=== PATIENT | male | born 1965 | race Caucasian/White ===

== ENCOUNTER 2016-08-08 06:07 | Emergency (ER) | payer OTHER ==
--- NOTE | 2016-08-08 06:39 | DIAGNOSTIC IMAGING REPORT ---
PROCEDURE: XR HAND 3 OR 4 VIEWS - LEFT INDICATION: TRAUMA/INJURY TECHNIQUE: Three views. COMPARISON: None. FINDINGS: There is a mildly distracted transverse fracture of the tuft of the distal phalanx, left second finger. There are nondisplaced fractures of the cheng of the distal phalanges, left third and fourth fingers. The rest of the osseous structures and joint spaces are normal. IMPRESSION: 1. Mildly distracted fracture of the tuft of the distal phalanx, left second finger. 2. Nondisplaced fractures of the tuft of the distal phalanges, left third and fourth fingers.
--- NOTE | 2016-08-08 07:21 | ED NURSING NOTES ---
Clinical Report - Nurses [facility] [address] [place] [address] 08/08/2016 6:11 Patient: KERRI OKEEFE TRIAGE Triage time 06:14. Chief Complaint: INJURY TO LEFT HAND. --06:21 Delia Paz R.N. 06:14 08/08/16. BP: 161/96. HR: 73. RR: 16 (regular and unlabored). O2 saturation: 97%. Temp: 97.4 F (oral). Montague-Reynolds pain scale: 01/11. --06:21 Delia Paz R.N. Weight: 102 kg stated. Height/Length: 67 inches Per Patient. BMI: 35.3. --06:20 Delia Paz R.N. Medications Losartan Potassium Oral 25 mg, 2x a day. --06:16 Delia Paz R.N. Hydrochlorothiazide Oral 25 mg, daily. --06:16 Delia Paz R.N. AmLODIPine Besylate Oral 10 mg, daily. --06:16 Delia Paz R.N. Amitriptyline HCl Oral 25 mg, daily. --06:16 Delia Paz R.N. Atorvastatin Calcium Oral 40 mg, daily. --06:17 Delia Paz R.N. Atorvastatin Calcium Oral (Tablet 40 mg) 1 tablet, daily. --06:17 Delia Paz R.N. Allergies ELISABETH Inhibitors. --06:15 Delia Paz R.N. History Arrived by private vehicle. Historian: patient. Primary physician (Wil). This occurred today. Mechanism of injury: he sustained a crush injury. SOCIAL HX: Light tobacco smoker (cigarette)- less than 1/2 a pack per day. Occasional alcohol use. History of drug use: marijuana. NUTRITIONAL RISK ASSESSMENT: The nutritional risk assessment revealed no deficiencies. FUNCTIONAL ASSESSMENT: Functional assessment: no impairments noted. --06:21 Delia Paz R.N. PROBLEMS: Hypertension. --06:19 Delia Paz R.N. ADDITIONAL SURGERIES: Back Surgery. --06:19 Delia Paz R.N. PHYSICAL ASSESSMENT EXTREMITIES: Tip of left index finger: partially avulsed nail. SKIN: Skin is warm and dry. --06:21 Delia Paz R.N. NURSING PROGRESS NOTES Two patient identifiers checked. Call light placed in reach. Side rails up x 1. Bed placed in lowest position. Brakes of bed on. --06:21 Delia Paz R.N. Patient ready for evaluation- chart flagged. --06:21 Delia Paz R.N. 06:35 08/08/2016 Ancef (CeFAZolin Sodium) IM 1 gm given. Given in the right ventral gluteus. Allergies verified and confirmed 5 rights. --06:38 Delia Paz R.N. WOUND REPAIR: Wound repair performed by ED physician. Preparation: suture tray set-up. Procedure: wound repaired with sutures (2 suture packets used for wound repair). --07:19 Phylicia Malik, ER Tech1 07:10. Applied dressing consisting of xeroform, following the application of antibiotic ointment (bacitracin). Secured with tube gauze. --07:19 Phylicia Malik, ER Tech1 07:44 08/08/2016 TDAP IM 0.5 mL given. (Lot#: [id number], expiration date: 05/01/2018, Warper Creeler: sanofi pasteur). Given in the right deltoid. Allergies verified and confirmed 5 rights. Vaccine information statement provided to the patient. --07:44 Kamilla Novoa R.N. DISPOSITION / DISCHARGE Departure time: 07:45 Aug 08 2016. --07:53 Kamilla Novoa R.N. No learning barriers present. Reviewed medication(s). Reviewed referral to an orthopedic surgeon. Work note given. Patient verbalized understanding. Written instructions provided in Honduran. The patient was discharged by the physician. He was discharged home. He left the Emergency Department ambulatory and via private vehicle. Patient driving. --07:57 Bright, Kamilla, R.N. Locked/Released at 08/08/2016 8:11 by Kamilla Novoa R.N.
--- NOTE | 2016-08-08 07:21 | ED CLINICAL REPORT ---
Clinical Report - Physicians/Mid Levels [facility] [address] [place] [address] 08/08/2016 6:11 [id number] Time Seen: 06:16. Arrived- By private vehicle. Historian- patient. HISTORY OF PRESENT ILLNESS Chief Complaint: Injury to the left index finger. The injury happened today. Occurred on a street. The patient sustained a crush injury- caught hand in door. Patient is experiencing moderate pain. Patient denies injury to the head or neck. No other injury. REVIEW OF SYSTEMS The patient sustained a laceration to the left index finger. He has had swelling. No tingling, numbness, weakness or foreign body. All systems otherwise negative, except as recorded above. PAST HISTORY See nurses notes. Primary physician: Dr De La Torre. The patient's dominant hand is the right. Tetanus immunization status is unknown. Hypertension. Hyperlipidemia. Chronic back pain. Surgeries: Back surgery. Medications: Atorvastatin Calcium Oral (Tablet 40 mg) 1 tablet, daily. Amitriptyline HCl Oral 25 mg, daily. AmLODIPine Besylate Oral 10 mg, daily. Hydrochlorothiazide Oral 25 mg, daily. Losartan Potassium Oral 25 mg, 2x a day. Allergies: ELISABETH Inhibitors. SOCIAL HISTORY Smoker- current status unknown. Occasional alcohol use. History of drug use: marijuana. ADDITIONAL NOTES The nursing notes have been reviewed. PHYSICAL EXAM Vital Signs: 08/08/2016 06:14 BP: 161/96. HR: 73. RR: 16. O2 saturation: 97%. Temp: 97.4 F. Montague-Reynolds pain scale: 6/10. Appearance: Alert. Oriented X3. Patient in mild distress. Head: Head atraumatic. Eyes: Eyes normal inspection. No scleral icterus or pale conjunctivae. Neck: Normal inspection. CVS: Normal heart rate and rhythm. Heart sounds normal. Pulses normal. Respiratory: No respiratory distress. Breath sounds normal. Skin: Skin warm and dry. (left index finger, distal phallanx nail bed laceration and contused tissue). Extremities: Tip of left index finger: moderate tenderness and swelling and 1.0 cm laceration, which involves the nail bed; nail completely avulsed; exposed bone with a visible fracture; partial loss of the nail bed; subungual hematoma present. SEE LACERATION PROCEDURE NOTE #1 (contused / crushed tissue). No foreign body. No tip amputation of the left index finger. Extremities otherwise negative. Neuro, Vascular and Tendons: Vascular status intact. Sensation intact. Motor intact. Tendon function intact. Neuro: Oriented X 3. No motor deficit. No sensory deficit. LABS, X-RAYS, AND EKG Lt Hand X-ray: Digit fracture of the left upper extremity. Comminuted, open fracture of the distal phalanx, index finger. (distal tuft fracture). Views: AP, lateral and oblique. Technique: good. The X-rays were interpreted contemporaneously by me. Pulse Oximetry: 08/08/2016 06:14 O2 saturation: 97%. (FIO2 - room air). Interpretation: normal. PROGRESS AND PROCEDURES Laceration Repair: Length: 1.0cm. Complexity: intermediate (layer closure). Wound depth/shape- subcutaneous and irregular, involving the nail bed and with avulsed nail. Contused tissue present. Tissue loss present. Distal neuro/vascular/tendon status normal. No tendon deficit. Anesthesia provided by digital block using 0.50% Marcaine (5 mL). Prepped with Betadine. Wound explored, irrigated and examined to the base in bloodless field extensively with normal saline. Closure of skin and nail bed: 5-0 Vicryl (5 sutures). Post-procedure: he is stable and there are no complications. Bleeding is controlled and neuro-vascular status is intact distal to the wound. Dressing applied. Following the application of antibiotic ointment. Secured with tube gauze. Tetanus immunization given. ( nail remived and meticulously clean and then replaced into nail fold.4-0 Nylon suture used to tack nail in place). Course of Care: Tdap Vaccine 0.5 mL IM given. Ancef 1gm IM given. Pt with crush injury / laceration to the nailbed and open distal tuft fx. Wound copiously irrigated with NS and small amount of betadine, closed and old nail sutured in place under nail fold as stent for new nail. Pt instructed to f/u with PCP and / or ortho/hand surgeon. Patient/family counseled. Disposition: Discharged. Condition: stable and improved. CLINICAL IMPRESSION Open displaced distal phalanx fracture of the left index finger. Crush injury to the left index finger. Complete nail avulsion to left index finger. Chronic substance abuse- tobacco (cigarettes), marijuana. INSTRUCTIONS Apply ice. Elevate affected areas above chest level. Wear aluminum splint until better. Protect wound and keep wound area clean. Change dressing twice daily. You may wash wounds briefly, then dry. Apply neosporin twice daily. Sutures should be removed. Do not work for three days. Warnings: INFECTION: Watch for signs of infection (increasing heat and redness, pus-like drainage, swelling, or increased pain). Return or see your doctor if these signs occur. TETANUS: You were given a tetanus shot during your visit. Make a note for future reference. GENERAL WARNINGS: Return or contact your physician immediately if your condition worsens or changes unexpectedly, if not improving as expected, or if other problems arise. Your Current Medications: CONTINUE TAKING THE FOLLOWING MEDICATIONS: Amitriptyline HCl Oral : 25 mg daily. AmLODIPine Besylate Oral : 10 mg daily. Atorvastatin Calcium Oral : Tablet 40 mg, 1 tablet daily. Hydrochlorothiazide Oral : 25 mg daily. Losartan Potassium Oral : 25 mg 2x a day. Prescription Medications: Hydrocodone/APAP 5mg/325mg: take 1 to 2 orally every 6 hours as needed for pain. Dispense fifteen (15). No refills. Augmentin 875 mg: take 1 tablet orally every 12 hours for 7 days. No refill. Substitution is permissible. Follow-up: Follow up with your doctor in about three days. Follow up with an orthopedic surgeon and a hand surgeon- as recommended by your primary care physician- in three days. (Electronically signed by Devyn Worthington DO 08/09/2016 7:17)
--- NOTE | 2016-08-08 07:21 | ED ORDER SUMMARY ---
..... Patient: KERRI OKEEFE OrderSheet [facility] VisitID: [id number] [place] [address] 51y, M Registration Date/Time: 08/08/2016 ORDER SHEET Weight: 102.0 kg (stated) Allergies: ELISABETH Inhibitors GENERAL ORDERS: Hand 3 or 4V Left Urgent (06:15 08/08/2016 [facility] ) (Ack 6:17 AMcQuoid ER Tech1) (6:27 AMcQuoid ER Tech1) Dress Wounds (bacitracin and tube guaze) (07:15 08/08/2016 [facility]) (7:18 AMcQuoid ER Tech1) MEDICATION ORDERS: Ancef IM 1 gm (NOW) (06:27 08/08/2016 [facility] ) (Ack 6:28 RCollier R.N.) (6:38 RCollpaulie R.N.) Tdap IM 0.5 mL (NOW, per protocol) (07:15 08/08/2016 [facility]) (7:44 Nereida R.NEmma) IV FLUIDS: ORDER SHEET NOTES: [Electronically signed by Kamilla Novoa R.N. (08:11 08/08/2016)] [Electronically signed by Devyn Worthington DO (07:17 08/09/2016)] [Electronically locked/signed by Kamilla Novoa R.N. (08:08/08/2016)]
--- NOTE | 2016-08-08 07:21 | ED ORDER SUMMARY ---
..... Patient: KERRI OKEEFE OrderSheet [facility] VisitID: [id number] [place] [address] 51y, M Registration Date/Time: 08/08/2016 ORDER SHEET Weight: 102.0 kg (stated) Allergies: ELISABETH Inhibitors GENERAL ORDERS: Hand 3 or 4V Left Urgent (06:15 [facility]2016 [facility] (Ack 6:17 AMcQuoid ER Tech1) (6:27 AMcQuoid ER Tech1) Dress Wounds (bacitracin and tube guaze) (07:15 08/08/2016 [facility]) (7:18 AMcQuoid ER Tech1) MEDICATION ORDERS: Ancef IM 1 gm (NOW) (06:27 08/08/2016 [facility] ) (Ack 6:28 RCollier R.N.) (6:38 RCollpaulie R.N.) Tdap IM 0.5 mL (NOW, per protocol) (07:15 08/08/2016 [facility]) (7:44 Nereida R.NEmma) IV FLUIDS: ORDER SHEET NOTES: [Electronically signed by Kamilla Novoa R.N. (08:11 08/08/2016)] [Electronically signed by Devyn Worthington DO (07:17 08/09/2016)] [Electronically locked/signed by Kamilla Novoa R.N. (08:08/08/2016)]
--- NOTE | 2016-08-08 07:21 | ED NURSING NOTES ---
Clinical Report - Nurses [facility] [address] [place] [address] 08/08/2016 6:11 Patient: KERRI OKEEFE TRIAGE Triage time 06:14. Chief Complaint: INJURY TO LEFT HAND. --06:21 Delia Paz R.N. 06:14 08/08/16. BP: 161/96. HR: 73. RR: 16 (regular and unlabored). O2 saturation: 97%. Temp: 97.4 F (oral). Montague-Reynolds pain scale: 01/11. --06:21 Delia Paz R.N. Weight: 102 kg stated. Height/Length: 67 inches Per Patient. BMI: 35.3. --06:20 Delia Paz R.N. Medications Losartan Potassium Oral 25 mg, 2x a day. --06:16 Delia Paz R.N. Hydrochlorothiazide Oral 25 mg, daily. --06:16 Delia Paz R.N. AmLODIPine Besylate Oral 10 mg, daily. --06:16 Delia Paz R.N. Amitriptyline HCl Oral 25 mg, daily. --06:16 Delia Paz R.N. Atorvastatin Calcium Oral 40 mg, daily. --06:17 Delia Paz R.N. Atorvastatin Calcium Oral (Tablet 40 mg) 1 tablet, daily. --06:17 Delia Paz R.N. Allergies ELISABETH Inhibitors. --06:15 Delia Paz R.N. History Arrived by private vehicle. Historian: patient. Primary physician (Wil). This occurred today. Mechanism of injury: he sustained a crush injury. SOCIAL HX: Light tobacco smoker (cigarette)- less than 1/2 a pack per day. Occasional alcohol use. History of drug use: marijuana. NUTRITIONAL RISK ASSESSMENT: The nutritional risk assessment revealed no deficiencies. FUNCTIONAL ASSESSMENT: Functional assessment: no impairments noted. --06:21 Delia Paz R.N. PROBLEMS: Hypertension. --06:19 Delia Paz R.N. ADDITIONAL SURGERIES: Back Surgery. --06:19 Delia Paz R.N. PHYSICAL ASSESSMENT EXTREMITIES: Tip of left index finger: partially avulsed nail. SKIN: Skin is warm and dry. --06:21 Delia Paz R.N. NURSING PROGRESS NOTES Two patient identifiers checked. Call light placed in reach. Side rails up x 1. Bed placed in lowest position. Brakes of bed on. --06:21 Delia Paz R.N. Patient ready for evaluation- chart flagged. --06:21 Delia Paz R.N. 06:35 08/08/2016 Ancef (CeFAZolin Sodium) IM 1 gm given. Given in the right ventral gluteus. Allergies verified and confirmed 5 rights. --06:38 Delia Paz R.N. WOUND REPAIR: Wound repair performed by ED physician. Preparation: suture tray set-up. Procedure: wound repaired with sutures (2 suture packets used for wound repair). --07:19 Phylicia Malik, ER Tech1 07:10. Applied dressing consisting of xeroform, following the application of antibiotic ointment (bacitracin). Secured with tube gauze. --07:19 Phylicia Malik, ER Tech1 07:44 08/08/2016 TDAP IM 0.5 mL given. (Lot#: [id number], expiration date: 05/01/2018, Float Tender: sanofi pasteur). Given in the right deltoid. Allergies verified and confirmed 5 rights. Vaccine information statement provided to the patient. --07:44 Kamilla Novoa R.N. DISPOSITION / DISCHARGE Departure time: 07:45 Aug 08 2016. --07:53 aKmilla Novoa R.N. No learning barriers present. Reviewed medication(s). Reviewed referral to an orthopedic surgeon. Work note given. Patient verbalized understanding. Written instructions provided in Wallisian. The patient was discharged by the physician. He was discharged home. He left the Emergency Department ambulatory and via private vehicle. Patient driving. --07:57 Bright, Kamilla, R.N. Locked/Released at 08/08/2016 8:11 by Kamilla Novoa R.N.
--- NOTE | 2016-08-09 07:17 | ED DISCHARGE INSTRUCTIONS ---
Patient: KERRI OKEEFE General Instructions [facility] VisitID: [id number] [place] [address] 51y, M Registration Date/Time: 08/08/2016 Open displaced distal phalanx fracture of the left index finger. Crush injury to the left index finger. Complete nail avulsion to left index finger. Chronic substance abuse- tobacco (cigarettes), marijuana. INSTRUCTIONS Apply ice. Elevate affected areas above chest level. Wear aluminum splint until better. Protect wound and keep wound area clean. Change dressing twice daily. You may wash wounds briefly, then dry. Apply neosporin twice daily. Sutures should be removed. Do not work for three days. Warnings: INFECTION: Watch for signs of infection (increasing heat and redness, pus-like drainage, swelling, or increased pain). Return or see your doctor if these signs occur. TETANUS: You were given a tetanus shot during your visit. Make a note for future reference. GENERAL WARNINGS: Return or contact your physician immediately if your condition worsens or changes unexpectedly, if not improving as expected, or if other problems arise. Your Current Medications: CONTINUE TAKING THE FOLLOWING MEDICATIONS: Amitriptyline HCl Oral : 25 mg daily. AmLODIPine Besylate Oral : 10 mg daily. Atorvastatin Calcium Oral : Tablet 40 mg, 1 tablet daily. Hydrochlorothiazide Oral : 25 mg daily. Losartan Potassium Oral : 25 mg 2x a day. Prescription Medications: Hydrocodone/APAP 5mg/325mg: take 1 to 2 orally every 6 hours as needed for pain. Dispense fifteen (15). No refills. Augmentin 875 mg: take 1 tablet orally every 12 hours for 7 days. No refill. Substitution is permissible. Follow-up: Follow up with your doctor in about three days. Follow up with an orthopedic surgeon and a hand surgeon- as recommended by your primary care physician- in three days. ADDITIONAL INFORMATION Crush Injury: Hand [No Fx] You have a CRUSH INJURY of your HAND. This causes local pain, swelling and sometimes bruising. There are no broken bones. This injury may take from a few days to a few weeks to heal. If the FINGERNAIL has been severely injured, it may fall off in 1-2 weeks. A new one will usually start to grow back within a month. Home Care: Keep your hand elevated to reduce pain and swelling. When sitting or lying down elevate your arm above the level of your heart. You can do this by placing your arm on a pillow that rests on your chest or on a pillow at your side. This is most important during the first 48 hours after injury. Apply an ice pack (ice cubes in a plastic bag, wrapped in a towel) over the injured area for 20 minutes every 1-2 hours the first day for pain relief. Continue this 3-4 times a day until the pain and swelling goes away. You may use acetaminophen (Tylenol) or ibuprofen (Motrin, Advil) to control pain, unless another pain medicine was prescribed. [ NOTE : If you have chronic liver or kidney disease or ever had a stomach ulcer or GI bleeding, talk with your doctor before using these medicines.] Keep the splint/cast dry at all times. Bathe with your splint/cast well out of the water, protected with a large plastic bag, rubber-banded at the top end. If a fiberglass cast or splint gets wet, you can dry it with a hair-dryer. Follow Up with your doctor as advised if you are not starting to improve within the next THREE days. [NOTE: If X-rays were taken, they will be reviewed by a radiologist. You will be notified of any new findings that may affect your care.] Get Prompt Medical Attention if any of the following occur: The plaster cast or splint becomes wet or soft The fiberglass cast or splint remains wet for more than 24 hours Increased tightness or pain under the cast or splint Fingers become swollen, cold, blue, numb or tingly Redness, warmth, swelling, drainage from the wound, or foul odor from a cast or splint Fever of 100.4F(38C) or higher, or as directed by your healthcare provider Fracture:Finger [Open] You have a fracture of your finger (broken finger) with a nearby cut, puncture or deep scrape. This causes local pain, swelling and bruising. Because of the open injury, there is a risk of infection in the skin and bone. Antibiotics will be used to lower the risk of infection. This injury takes about four weeks to heal. Finger injuries are often treated with a splint, cast or by taping the injured finger to the next one ("dom taping"). This protects the injured finger and holds the bone in position while it heals. More serious fractures may require surgery. If the FINGERNAIL has been severely injured, it will probably fall off in 1-2 weeks. A new fingernail will usually start to grow back within a month. Home Care: Keep your hand elevated to reduce pain and swelling. When sitting or lying down elevate your arm above the level of your heart. You can do this by placing your arm on a pillow that rests on your chest or on a pillow at your side. This is most important during the first 48 hours after injury. Apply an ice pack (ice cubes in a plastic bag, wrapped in a towel) over the injured area for 20 minutes every 1-2 hours the first day for pain relief. Continue this 3-4 times a day until the pain and swelling goes away. Keep the cast/splint completely dry at all times. Bathe with your cast/splint out of the water, protected with a large plastic bag, rubber-banded at the top end. If a fiberglass cast/splint gets wet, you can dry it with a hair-dryer. If dom tape was applied and it becomes wet or dirty, change it. You may replace it with paper, plastic or cloth tape. Cloth tape and paper tapes must be kept dry. Keep the dom tape in place for at least four weeks. You may use acetaminophen (Tylenol) or ibuprofen (Motrin, Advil) to control pain, unless another pain medicine was prescribed. [ NOTE : If you have chronic liver or kidney disease or ever had a stomach ulcer or GI bleeding, talk with your doctor before using these medicines.] Take all antibiotics until finished. Follow Up with your doctor within one week, or as advised by our staff, to be sure the bone is healing properly, . [NOTE: A radiologist will review any X-rays that were taken. We will notify you of any new findings that may affect your care.] Return Promptly or contact your doctor if any of the following occur: The plaster cast or splint becomes wet or soft The fiberglass cast or splint remains wet for more than 24 hours Pain or swelling increase Finger becomes cold, blue, numb or tingly Redness, warmth, swelling, drainage from the wound or foul odor from a cast or splint Fever of 100.4F (38C) or higher, or as directed by your healthcare provider Nail Injury (Complete Finger/Toe Nail Plate Avulsion) Some injuries to a finger or toe can cause loss of the nail. Sometimes there is a cutin the nail bed or a fracture of the bone under the nail. In almost all cases, the nail will grow back from under the cuticle. This takes a few weeks to start and is complete in about 46 months for a fingernail and 12 months for a toenail. If the nail bed was damaged, the nail may grow back with a rough or irregular shape. Sometimes the nail may not regrow at all. Home care The following guidelines will help you care for your wound at home: Keep the injured part raised to reduce pain and swelling. This is very important during the first 48 hours. Make an ice pack (ice cubes in a plastic bag, wrapped in a towel) and apply for 20 minutes every two hours during the first day, then 34 times a day to reduce swelling and pain until the swelling goes down. You may use acetaminophen or ibuprofen to control pain, unless another pain medicine was prescribed.If you have chronic liver or kidney disease or ever had a stomach ulcer or GI bleeding, talk with your doctor before using these medicines. The nail bed (tissue under the nail) is moist, soft and sensitive. This needs to be protected from injury for the first 710 days until it dries out and becomes hard. Keep it covered with a dressing or an adhesive bandage until that time. When a dressing is placed on an exposed nail bed, it may stick and be hard to remove if left in place more than 24 hours. Therefore, unless you were told otherwise, change dressings every 24 hours. If necessary, soak the dressing off while holding your finger or toe under warm, running water. Apply a layer of antibiotic ointment before putting on the new dressing or bandage. This will help keep it from sticking. If an X-ray was taken and a fracture was found, it will take about four weeks for this to heal. The injured part should be protected with a splint or tape while it is healing. If you were prescribed antibiotics to prevent infection, take them as directed until they are all gone. Follow-up care Follow up with your doctor or this facility as directed. Note:If X-rays were taken, they will be reviewed by a radiologist. You will be notified of any new findings that may affect your care. When to seek medical care Get prompt medical attention if any of the following occur: Pain or swelling increases Redness around the nail Pus (creamy white or yellow fluid) draining from the nail Fever of 100.4F (38C) or higher, or as directed by your health care provider Marijuana Abuse Marijuana is the most widely used illegal drug in the [place]. It is called by various names such as pot, weed, blunts, grass, reefer, ganja, hash, hashish. It is usually smoked but can be mixed with foods or brewed as a tea. It is sometimes sold with PCP (Darío Dust) or amphetamine mixed in it. These drugs can cause other harmful side effects. Marijuana can cause the following effects: Changes in mood (stimulated, happy, drowsy, depressed, paranoid) Hallucinations Increased heart rate and blood pressure Increased appetite Time distortion, difficulty concentrating, impaired memory Lung damage (similar to cigarettes with chronic cough, wheezing, frequent colds and bronchitis) You can become psychologically dependent on marijuana. That means the craving to use the drug is emotional or psychological rather than due to physical withdrawal. Is Marijuana Running Your Life? Here are some of the signs: Relying on marijuana to feel good, forget problems, deal with stress or to relax Wanting to be alone most of the time or only with others who use drugs Losing interest in things that used to be important Changes in school or job performance or attendance Spending a lot of time thinking about how to get marijuana Stealing or selling your things so you can buy marijuana Unable to stop using even though you may want to quit Increasing anxiety, anger,or depression Sleeping too much, changes in eating habits (weight loss or gain) Needing to use more to get the same effect Home Care Once you have become addicted to any drug, quitting is hard to do. Most people find they can't quit without help. So, dont try to do this alone. Talk to someone you trust who can support you. Seek professional help. Avoid people and places where drugs are used. That only increases the temptation to use. Follow Up with your doctor or as advised by our staff. For more information or a referral to a treatment center in your area, contact: Your local mental health center or the National Alcohol and Substance Abuse Information Center (500)-745-7462 www.addictioncareoptions.com [employer] and [employer] Dependence 016-207-LRFO www.ncadd.org Marijuana Anonymous 455-712-6275 www.marijuana-anonymous.org Get Prompt Medical Attention if any of the following occur: You feel extreme depression, fear, anxiety, or anger toward yourself or others You feel out of control You feel that you may try to harm yourself or another Bandage Change If the bandage becomes wet or dirty, replace it. Otherwise, leave it in place for the first 24 hours. Then once a day: After removing the bandage, wash the area with soap and water. Use a wet cotton swab to loosen and remove any blood or crust that forms on the wound. After cleaning, apply a thin layer of antibiotic ointment or cream. Reapply the bandage. You may shower as usual after the first 24 hours. If the bandage is on an arm or leg, cover it with a plastic bag rubber banded at both ends before showering. No tub baths or swimming until the bandage is removed and the wound healed (at least 7 days). Diphtheria Toxoid Adsorbed, Pertussis Vaccine, Acellular (Adsorbed), Tetanus Toxoid, Adsorbed Suspension for injection What is this medicine? DIPHTHERIA and TETANUS TOXOIDS; PERTUSSIS VACCINE (dif THEER ee uh and TET n us TOK soids; per IVANIA henley SEEN) is used to prevent diphtheria, tetanus, and pertussis infections. How should I use this medicine? This vaccine is for injection into a muscle. It is given by a health child adolescent care. A copy of Vaccine Information Statements will be given before each vaccination. Read this sheet carefully each time. The sheet may change frequently. Talk to your bargeman regarding the use of this vaccine in children. While the DTP vaccine may be given to children ages 6 weeks to 7 years and the Tdap vaccine may be given to children at least 10 years old, precautions do apply. What side effects may I notice from receiving this medicine? Side effects that you should report to your doctor or health child adolescent care as soon as possible: allergic reactions like skin rash, itching or hives, swelling of the face, lips, or tongue breathing problems fever of 103 degrees F or more flu-like symptoms inconsolable crying infection pain, tingling, numbness in the hands or feet seizures swelling of arm or leg that was injected unusually weak or tired Side effects that usually do not require immediate medical attention (report these side effects to your doctor or health child adolescent care if they continue or are bothersome): fussy, irritable loss of appetite fever of 102 degrees F or less pain, tenderness, redness, swelling, or a 'knot' at site where injected vomiting What may interact with this medicine? immune globulin medicines that suppress your immune function like adalimumab, anakinra, infliximab medicines to treat cancer medicines that treat or prevent blood clots like warfarin, enoxaparin, and dalteparin steroid medicines like prednisone or cortisone What if I miss a dose? It is important not to miss your dose. Call your doctor or health child adolescent care if you are unable to keep an appointment. Where should I keep my medicine? This drug is given in a hospital or clinic and will not be stored at home. What should I tell my health care provider before I take this medicine? They need to know if you have any of these conditions: blood disorders like hemophilia fever or infection immune system problems neurologic disease seizures an unusual or allergic reaction to vaccines, thimerosal, latex, other medicines, foods, dyes, or preservatives or trying to get breast-feeding What should I watch for while using this medicine? See your health care provider for all shots of this vaccine as directed. To have protection from infection, you must have 3 shots of this vaccine plus boosters as needed. Tell your doctor right away if you have any serious or unusual side effects after getting this vaccine. Hydrocodone Bitartrate, Acetaminophen Oral tablet What is this medicine? ACETAMINOPHEN; HYDROCODONE (a set a RUTHY mynor fen; winnie droe KOE done) is a pain reliever. It is used to treat mild to moderate pain. How should I use this medicine? Take this medicine by mouth. Swallow it with a full glass of water. Follow the directions on the prescription label. If the medicine upsets your stomach, take the medicine with food or milk. Do not take more than you are told to take. Talk to your bargeman regarding the use of this medicine in children. This medicine is not approved for use in children. What side effects may I notice from receiving this medicine? Side effects that you should report to your doctor or health child adolescent care as soon as possible: allergic reactions like skin rash, itching or hives, swelling of the face, lips, or tongue breathing problems confusion feeling faint or lightheaded, falls stomach pain yellowing of the eyes or skin Side effects that usually do not require medical attention (report to your doctor or health child adolescent care if they continue or are bothersome): nausea, vomiting stomach upset What may interact with this medicine? alcohol antihistamines isoniazid medicines for depression, anxiety, or psychotic disturbances medicines for sleep muscle relaxants naltrexone narcotic medicines (opiates) for pain phenobarbital ritonavir tramadol What if I miss a dose? If you miss a dose, take it as soon as you can. If it is almost time for your next dose, take only that dose. Do not take double or extra doses. Where should I keep my medicine? Keep out of the reach of children. This medicine can be abused. Keep your medicine in a safe place to protect it from theft. Do not share this medicine with anyone. Selling or giving away this medicine is dangerous and against the law. Store at room temperature between 15 and 30 degrees C (59 and 86 degrees F). Protect from light. Keep container tightly closed. Throw away any unused medicine after the expiration date. Discard unused medicine and used packaging carefully. Pets and children can be harmed if they find used or lost packages. What should I tell my health care provider before I take this medicine? They need to know if you have any of these conditions: brain tumor Crohn's disease, inflammatory bowel disease, or ulcerative colitis drink more than 3 alcohol-containing drinks per day drug abuse or addiction head injury heart or circulation problems kidney disease or problems going to the bathroom liver disease lung disease, asthma, or breathing problems an unusual or allergic reaction to acetaminophen, hydrocodone, other opioid analgesics, other medicines, foods, dyes, or preservatives or trying to get breast-feeding What should I watch for while using this medicine? Tell your doctor or health child adolescent care if your pain does not go away, if it gets worse, or if you have new or a different type of pain. You may develop tolerance to the medicine. Tolerance means that you will need a higher dose of the medicine for pain relief. Tolerance is normal and is expected if you take the medicine for a long time. Do not suddenly stop taking your medicine because you may develop a severe reaction. Your body becomes used to the medicine. This does NOT mean you are addicted. Addiction is a behavior related to getting and using a drug for a non-medical reason. If you have pain, you have a medical reason to take pain medicine. Your doctor will tell you how much medicine to take. If your doctor wants you to stop the medicine, the dose will be slowly lowered over time to avoid any side effects. You may get drowsy or dizzy when you first start taking the medicine or change doses. Do not drive, use machinery, or do anything that may be dangerous until you know how the medicine affects you. Stand or sit up slowly. There are different types of narcotic medicines (opiates) for pain. If you take more than one type at the same time, you may have more side effects. Give your health care provider a list of all medicines you use. Your doctor will tell you how much medicine to take. Do not take more medicine than directed. Call emergency for help if you have problems breathing. The medicine will cause constipation. Try to have a bowel movement at least every 2 to 3 days. If you do not have a bowel movement for 3 days, call your doctor or health child adolescent care. Too much acetaminophen can be very dangerous. Do not take Tylenol (acetaminophen) or medicines that contain acetaminophen with this medicine. Many non-prescription medicines contain acetaminophen. Always read the labels carefully. Amoxicillin Trihydrate, Clavulanate Potassium Oral tablet What is this medicine? AMOXICILLIN; CLAVULANIC ACID (a mox i JENNIFER in; JOSE fisher ic id) is a penicillin antibiotic. It is used to treat certain kinds of bacterial infections. It will not work for colds, flu, or other viral infections. How should I use this medicine? Take this medicine by mouth with a full glass of water. Follow the directions on the prescription label. Take at the start of a meal. Do not crush or chew. If the tablet has a score line, you may cut it in half at the score line for easier swallowing. Take your medicine at regular intervals. Do not take your medicine more often than directed. Take all of your medicine as directed even if you think you are better. Do not skip doses or stop your medicine early. Talk to your bargeman regarding the use of this medicine in children. Special care may be needed. What side effects may I notice from receiving this medicine? Side effects that you should report to your doctor or health child adolescent care as soon as possible: allergic reactions like skin rash, itching or hives, swelling of the face, lips, or tongue breathing problems dark urine fever or chills, sore throat redness, blistering, peeling or loosening of the skin, including inside the mouth seizures trouble passing urine or change in the amount of urine unusual bleeding, bruising unusually weak or tired white patches or sores in the mouth or throat Side effects that usually do not require medical attention (report to your doctor or health child adolescent care if they continue or are bothersome): diarrhea dizziness headache nausea, vomiting stomach upset vaginal or anal irritation What may interact with this medicine? allopurinol anticoagulants control pills methotrexate probenecid What if I miss a dose? If you miss a dose, take it as soon as you can. If it is almost time for your next dose, take only that dose. Do not take double or extra doses. Where should I keep my medicine? Keep out of the reach of children. Store at room temperature below 25 degrees C (77 degrees F). Keep container tightly closed. Throw away any unused medicine after the expiration date. What should I tell my health care provider before I take this medicine? They need to know if you have any of these conditions: bowel disease, like colitis kidney disease liver disease mononucleosis an unusual or allergic reaction to amoxicillin, penicillin, cephalosporin, other antibiotics, clavulanic acid, other medicines, foods, dyes, or preservatives or trying to get breast-feeding What should I watch for while using this medicine? Tell your doctor or health child adolescent care if your symptoms do not improve. Do not treat diarrhea with over the counter products. Contact your doctor if you have diarrhea that lasts more than 2 days or if it is severe and watery. If you have diabetes, you may get a false-positive result for sugar in your urine. Check with your doctor or health child adolescent care. control pills may not work properly while you are taking this medicine. Talk to your doctor about using an extra method of control. You have been given the following additional information: Crush Injury, Hand/Finger Fracture, Finger (Open) Nail Avulsion, Complete Marijuana Abuse Dressing Change Diphtheria Toxoid Adsorbed, Pertussis Vaccine, Acellular (Adsorbed), Tetanus Toxoid, Adsorbed Suspension for injection Hydrocodone Bitartrate, Acetaminophen Oral tablet Amoxicillin Trihydrate, Clavulanate Potassium Oral tablet Do not work for three days. (Electronically signed by Devyn Worthington DO 08/09/2016 7:17)
--- NOTE | 2016-08-09 07:17 | ED MAR SUMMARY ---
..... Medication Administration Record Formerly [facility] [address] [place] [address] Patient: KERRI OKEEFE Visit ID: [id number] 51y, M Weight: 102.0 kg Height/Length: 67 in BMI: 35.3 ALLERGIES: ELISABETH Inhibitors Given 06:35 08/08/2016 Delia Paz REmmaNEmma Medication Administered: ANCEF [IM] (CEFAZOLIN SODIUM), Dose: 1 gm IM. Medication Ordered: Ancef IM 1 gm (NOW). Given 07:44 08/08/2016 Kamilla Novoa RBartolome Medication Administered: TDAP [IM], Dose: 0.5 mL IM. Medication Ordered: Tdap IM 0.5 mL (NOW, per protocol).
--- NOTE | 2016-08-09 07:17 | ED MED RECONCILIATION SUMMARY ---
Patient: KERRI OKEEFE Medication Reconciliation Report [facility] VisitID: [id number] [address] [place] [address] 51y, M Registration Date/Time: 08/08/2016 Weight: 102.0 kg Height/Length: 67 in. BMI: 35.3 ALLERGIES: ELISABETH Inhibitors The patient's Home Medications are listed below: CONTINUE TAKING THE FOLLOWING MEDICATIONS: Amitriptyline HCl Oral 25 mg, daily AmLODIPine Besylate Oral 10 mg, daily Atorvastatin Calcium Oral (40 mg) 1 tablet, daily Hydrochlorothiazide Oral 25 mg, daily Losartan Potassium Oral 25 mg, 2x a day The source(s) of the original Home Medication information: Not obtained. The following Medications were given to the patient in the Emergency Department: Ancef [IM] IM 1 gm, administered: 08/08/2016 6:35:00 AM TDAP [IM] IM 0.5 mL, administered: 08/08/2016 7:44:00 AM The following Medications were prescribed to the patient: Hydrocodone/APAP 5mg/325mg: take 1 to 2 orally every 6 hours as needed for pain. Dispense fifteen (15). No refills. -- Devyn Worthington DO Augmentin 875 mg: take 1 tablet orally every 12 hours for 7 days. No refill. Substitution is permissible. -- Devyn Worthington DO
--- NOTE | 2016-08-09 07:17 | ED MAR SUMMARY ---
..... Medication Administration Record [facility] [address] [place] [address] Patient: KERRI OKEEFE Visit ID: [id number] 51y, M Weight: 102.0 kg Height/Length: 67 in BMI: 35.3 ALLERGIES: ELISABETH Inhibitors Given 06:35 08/08/2016 Delia Paz REmmaNEmma Medication Administered: ANCEF [IM] (CEFAZOLIN SODIUM), Dose: 1 gm IM. Medication Ordered: Ancef IM 1 gm (NOW). Given 07:44 08/08/2016 Kamilla Novoa RBartolome Medication Administered: TDAP [IM], Dose: 0.5 mL IM. Medication Ordered: Tdap IM 0.5 mL (NOW, per protocol).
--- NOTE | 2016-08-09 07:17 | ED MED RECONCILIATION SUMMARY ---
Patient: KERRI OKEEFE Medication Reconciliation Report [facility] VisitID: [id number] [address] [place] [address] 51y, M Registration Date/Time: 08/08/2016 Weight: 102.0 kg Height/Length: 67 in. BMI: 35.3 ALLERGIES: ELISABETH Inhibitors The patient's Home Medications are listed below: CONTINUE TAKING THE FOLLOWING MEDICATIONS: Amitriptyline HCl Oral 25 mg, daily AmLODIPine Besylate Oral 10 mg, daily Atorvastatin Calcium Oral (40 mg) 1 tablet, daily Hydrochlorothiazide Oral 25 mg, daily Losartan Potassium Oral 25 mg, 2x a day The source(s) of the original Home Medication information: Not obtained. The following Medications were given to the patient in the Emergency Department: Ancef [IM] IM 1 gm, administered: 08/08/2016 6:35:00 AM TDAP [IM] IM 0.5 mL, administered: 08/08/2016 7:44:00 AM The following Medications were prescribed to the patient: Hydrocodone/APAP 5mg/325mg: take 1 to 2 orally every 6 hours as needed for pain. Dispense fifteen (15). No refills. -- Devyn Worthington DO Augmentin 875 mg: take 1 tablet orally every 12 hours for 7 days. No refill. Substitution is permissible. -- Devyn Worthington DO
== END 2016-08-08 07:45 | disposition home or self-care (01) ==
LOC: ED SRH 06:07
DX: S62.631B Displaced fracture of distal phalanx of left index finger, initial encounter for open fracture (principal); S61.311A Laceration without foreign body of left index finger with damage to nail, initial encounter; S67.191A Crushing injury of left index finger, initial encounter; W23.1XXA Caught, crushed, jammed, or pinched between stationary objects, initial encounter; Y93.9 Activity, unspecified; Y92.410 Unspecified street and highway as the place of occurrence of the external cause; Z23 Encounter for immunization; F17.210 Nicotine dependence, cigarettes, uncomplicated; F12.10 Cannabis abuse, uncomplicated

== ENCOUNTER 2016-12-03 19:59 | Emergency (ER) | payer OTHER ==
--- NOTE | 2016-12-03 20:57 | ED ORDER SUMMARY ---
..... Patient: KERRI OKEEFE OrderSheet [facility] VisitID: [id number] [address] [place] [address] 51y, M Registration Date/Time: 12/03/2016 ORDER SHEET Weight: 104.3 kg (stated) Allergies: LIsinopril, ELISABETH Inhibitors GENERAL ORDERS: Dress Wounds (pressure dressing) (20:33 12/03/2016 [facility] Cal[facility] Worker Helper verbal order read back to Hitesh White) (20:33 [facility]) MEDICATION ORDERS: IV FLUIDS: ORDER SHEET NOTES: [Electronically signed by Karie Winslow P.A.-C (21:03 12/03/2016)] [Electronically signed by Rom Welsh R.N. (21:12 12/03/2016)] [Electronically locked/signed by Rom Welsh R.N. (21:12 12/03/2016)]
--- NOTE | 2016-12-03 20:57 | ED ORDER SUMMARY ---
..... Patient: KERRI OKEEFE OrderSheet [facility] VisitID: [id number] [address] [place] [address] 51y, M Registration Date/Time: 12/03/2016 ORDER SHEET Weight: 104.3 kg (stated) Allergies: LIsinopril, ELISABETH Inhibitors GENERAL ORDERS: Dress Wounds (pressure dressing) (20:33 [facility]03[facility] order read back to Hitesh White) (20:33 [facility]) MEDICATION ORDERS: IV FLUIDS: ORDER SHEET NOTES: [Electronically signed by Karie Winslow P.A.-C (21:03 12/03/2016)] [Electronically signed by Rom Welsh R.N. (21:12 12/03/2016)] [Electronically locked/signed by Rom Welsh R.N. (21:12 12/03/2016)]
--- NOTE | 2016-12-03 20:57 | ED CLINICAL REPORT ---
Clinical Report - Physicians/Mid Levels [facility] [address] [place] [address] 12/03/2016 19:59 [id number] Time Seen: 20:11 Dec 03 2016. Arrived- By private vehicle. HISTORY OF PRESENT ILLNESS Chief Complaint: Injury to the left thumb. The injury happened just prior to arrival. Occurred at home. The patient sustained a laceration. Patient is experiencing mild pain. ( Patient reports laceration from a glass that broke into 2 pieces prior to arrival, from a bird feeder. Incident occurred at home. Reports last tetanus immunization within the last 12 months.). REVIEW OF SYSTEMS The patient sustained a laceration. All systems otherwise negative, except as recorded above. PAST HISTORY The patient's dominant hand is the right. He has not had a prior injury to the same area. Tetanus immunization status is up-to-date. SOCIAL HISTORY Former smoker (now vapes). Alcohol use. ADDITIONAL NOTES The nursing notes have been reviewed. PHYSICAL EXAM Appearance: Alert. Head: Head atraumatic. ENT: Ears normal. Nose normal. Neck: Normal inspection. CVS: Normal heart rate and rhythm. Heart sounds normal. Respiratory: No respiratory distress. Breath sounds normal. No decreased air movement or accessory muscle use. Abdomen: No visible injury. Soft. Skin: Skin warm. Extremities: Left thumb: (flap like lac on plasencia surface, well approximated, no bleeding). No hand injury. Neuro, Vascular and Tendons: Vascular status intact. Tendon function intact. PROGRESS AND PROCEDURES PROCEDURES (Left thumb: Dermabond/ steri strips after irrigation, and non adhesive dressing). Course of Care: patient here in the area is very stable, well approximated flap with no signs of foreign object. Tendency disposition up to date. Full range of motion no nail involvement. Patient with no bleeding. Dermabond and Steri-Strips applied. To follow up outpatient as needed. Patient is stable. Patient/family counseled. Disposition: Discharged. CLINICAL IMPRESSION Single superficial laceration to the left thumb.Treatment of laceration not delayed. No infection or foreign body present. INSTRUCTIONS Elevate affected areas above chest level. (keep away from water for 48 hours). OTC Medications: Take OTC medications according to label instructions. Available over the counter. Acetaminophen (available over the counter): take according to label instructions. Motrin (available over the counter): take according to label instructions. (Electronically signed by Karie Winslow P.A.-C 12/03/2016 21:03)
--- NOTE | 2016-12-03 20:57 | ED NURSING NOTES ---
Clinical Report - Nurses [facility] [address] [place] [address] 12/03/2016 19:59 Patient: KERRI OKEEFE TRIAGE Triage time 20:04. Acuity: LEVEL 4. Chief Complaint: INJURY TO THE LEFT THUMB. 20:10. Alert. SEPSIS SCREEN: Sepsis Screen. Negative (no infection suspected/documented). BRITANY COMA SCORE: [place] Coma Scale: 15- eyes open spontaneously (4); best verbal response- oriented x 4 (5); best motor response- obeys commands (6). --20:10 Rom Welsh R.N. 20:04 12/03/16. BP: 155/90. HR: 75. RR: 15. O2 saturation: 98%. Temp: 98.2 F. Pain level now: 08/13. --20:10 Rom Welsh R.N. Weight: 104.3 kg stated. Height/Length: 66 inches Per Patient. BMI: 37.1. --20:10 Rom Welsh R.N. Medications Atorvastatin Calcium Oral (Tablet 20 mg) 1 tablet, daily. --20:08 Rom Welsh R.N. Amitriptyline HCl Oral 25 mg, daily. AmLODIPine Besylate Oral 10 mg, daily. Hydrochlorothiazide Oral 25 mg, daily. Losartan Potassium Oral 25 mg, 2x a day. --20:09 Rom Welsh R.N. Medication/allergy information source: the patient. --20:10 Rom Welsh R.N. Allergies LIsinopril. --20:08 Rom Welsh R.N. ELISABETH Inhibitors. --20:09 Rom Welsh R.N. History Arrived by private vehicle. Historian: patient. Unaccompanied. Primary physician (Jackie). This occurred (20 minutes ago). Occurred at home. He sustained a laceration from a broken glass. Treatment CASKET LINER: None. PAST MEDICAL HX: Tetanus status: up-to-date. Immunizations: up-to-date. SOCIAL HX: Former smoker, end date 08/2016 (Now vapes). Occasional alcohol use. History of drug use: marijuana. (daily). ABUSE ASSESSMENT: No report of abuse. FALL RISK ASSESSMENT: Fall risk assessment completed. No fall risk identified. NUTRITIONAL RISK ASSESSMENT: The nutritional risk assessment revealed no deficiencies. FUNCTIONAL ASSESSMENT: Functional assessment: no impairments noted. LEARNING NEEDS ASSESSMENT: The learning needs assessment revealed no barriers. SKIN INTEGRITY ASSESSMENT: Skin integrity risk assessment completed. No skin integrity risk identified. --20:10 Rom Welsh R.N. PROBLEMS: Hyperlipidemia. Substance Abuse. Hypertension. --20:09 Rom Welsh R.N. ADDITIONAL SURGERIES: Back Surgery. --20:09 Rom Welsh R.N. Interventions ID band on patient. To treatment room. --20:10 Rom Welsh R.N. PHYSICAL ASSESSMENT 20:07. Ambulatory to room. GENERAL / NEURO / PSYCH: Oriented X 4. Alert. EXTREMITIES: Neuro-vascular status intact to the extremity. Tip of left thumb: laceration with controlled bleeding. SKIN: Skin is warm and dry. --20:07 Rom Welsh R.N. NURSING PROGRESS NOTES 20:07. Two patient identifiers checked. Call light placed in reach. Bed placed in lowest position. Brakes of bed on. Patient ready for evaluation- chart flagged. --20:07 Rom Welsh R.N. Applied clean pressure dressing consisting of 4x4 gauze. Secured with autumn. --20:34 Edvin Avila, ER Diabetes Physician Applied clean bulky dressing consisting of 4x4 gauze and telfa pad. Secured with tube gauze (PRESSURE DRESSING REMOVED BY DEAN WHALEY). --20:55 Edvin Avila, ER Diabetes Physician 20:59. WOUND REPAIR: Wound repair performed by JOVANA. Assisted by one tech. The wound is located on the left thumb. The wound is flap-like. Preparation. Wound cleansed per JOVANA and irrigated per JOVANA. Procedure: wound repaired with skin adhesive. Post-procedure: he was stable, no complications and bleeding controlled. Total time of assist / procedure: 15 minutes. --21:11 Rom Welsh R.N. 21:06. The patient is calm and resting quietly. Overall patient status is improved. GENERAL / NEURO / PSYCH: Alert. Oriented X 4. RESPIRATORY: No respiratory distress. EXTREMITIES: Neuro-vascular status intact to the extremity. SKIN: Skin is warm and dry. --21:11 Rom Welsh R.N. DISPOSITION / DISCHARGE Departure time: 21:08. Condition at departure: stable. No learning barriers present. Discharge instructions provided and reviewed with the patient. Reviewed medication(s) side effects, precautions, dosing and course information. Prescription(s) given to the patient. Patient verbalized understanding. Written instructions provided in Japanese. The patient was discharged home and unaccompanied at time of discharge. He left the Emergency Department ambulatory and via private vehicle. Patient driving. FALL RISK ASSESSMENT: Fall risk assessment completed. No fall risk identified. --21:10 Rom Welsh R.N. 21:09 12/03/16. BP: 152/90. HR: 67. RR: 15. O2 saturation: 97% on room air. Pain level now: 0/10. --21:10 Rom Welsh R.N. Locked/Released at 12/03/2016 21:12 by Rom Welsh R.N.
--- NOTE | 2016-12-03 20:57 | ED CLINICAL REPORT ---
Clinical Report - Physicians/Mid Levels [facility] [address] [place] [address] 12/03/2016 19:59 [id number] Time Seen: 20:11 Dec 03 2016. Arrived- By private vehicle. HISTORY OF PRESENT ILLNESS Chief Complaint: Injury to the left thumb. The injury happened just prior to arrival. Occurred at home. The patient sustained a laceration. Patient is experiencing mild pain. ( Patient reports laceration from a glass that broke into 2 pieces prior to arrival, from a bird feeder. Incident occurred at home. Reports last tetanus immunization within the last 12 months.). REVIEW OF SYSTEMS The patient sustained a laceration. All systems otherwise negative, except as recorded above. PAST HISTORY The patient's dominant hand is the right. He has not had a prior injury to the same area. Tetanus immunization status is up-to-date. SOCIAL HISTORY Former smoker (now vapes). Alcohol use. ADDITIONAL NOTES The nursing notes have been reviewed. PHYSICAL EXAM Appearance: Alert. Head: Head atraumatic. ENT: Ears normal. Nose normal. Neck: Normal inspection. CVS: Normal heart rate and rhythm. Heart sounds normal. Respiratory: No respiratory distress. Breath sounds normal. No decreased air movement or accessory muscle use. Abdomen: No visible injury. Soft. Skin: Skin warm. Extremities: Left thumb: (flap like lac on plasencia surface, well approximated, no bleeding). No hand injury. Neuro, Vascular and Tendons: Vascular status intact. Tendon function intact. PROGRESS AND PROCEDURES PROCEDURES (Left thumb: Dermabond/ steri strips after irrigation, and non adhesive dressing). Course of Care: patient here in the area is very stable, well approximated flap with no signs of foreign object. Tendency disposition up to date. Full range of motion no nail involvement. Patient with no bleeding. Dermabond and Steri-Strips applied. To follow up outpatient as needed. Patient is stable. Patient/family counseled. Disposition: Discharged. CLINICAL IMPRESSION Single superficial laceration to the left thumb.Treatment of laceration not delayed. No infection or foreign body present. INSTRUCTIONS Elevate affected areas above chest level. (keep away from water for 48 hours). OTC Medications: Take OTC medications according to label instructions. Available over the counter. Acetaminophen (available over the counter): take according to label instructions. Motrin (available over the counter): take according to label instructions. (Electronically signed by Karie Winslow P.A.-C 12/03/2016 21:03)
--- NOTE | 2016-12-03 21:12 | ED MED RECONCILIATION SUMMARY ---
Patient: KERRI OKEEFE Medication Reconciliation Report [facility] VisitID: [id number] [address] [place] [address] 51y, M Registration Date/Time: 12/03/2016 Weight: 104.3 kg Height/Length: 66 in. BMI: 37.1 ALLERGIES: ELISABETH Inhibitors, LIsinopril The patient's Home Medications are listed below: THE FOLLOWING MEDICATIONS NEED TO BE RECONCILED: Amitriptyline HCl Oral 25 mg, daily AmLODIPine Besylate Oral 10 mg, daily Atorvastatin Calcium Oral (20 mg) 1 tablet, daily Hydrochlorothiazide Oral 25 mg, daily Losartan Potassium Oral 25 mg, 2x a day The source(s) of the original Home Medication information: patient The following Medications were given to the patient in the Emergency Department: None. The following Medications were prescribed to the patient: Take OTC medications according to label instructions. Available over the counter. -- Karie Winslow, P.A.-C Acetaminophen (available over the counter): take according to label instructions. -- Karie Winslow, P.A.-C Motrin (available over the counter): take according to label instructions. -- Karie Winslow, P.A.-C
--- NOTE | 2016-12-03 21:12 | ED DISCHARGE INSTRUCTIONS ---
Patient: KERRI OKEEFE General Instructions [facility] VisitID: [id number] [place] [address] 51y, M Registration Date/Time: 12/03/2016 Single superficial laceration to the left thumb.Treatment of laceration not delayed. No infection or foreign body present. INSTRUCTIONS Elevate affected areas above chest level. (keep away from water for 48 hours). OTC Medications: Take OTC medications according to label instructions. Available over the counter. Acetaminophen (available over the counter): take according to label instructions. Motrin (available over the counter): take according to label instructions. ADDITIONAL INFORMATION Laceration(Skin Glue) A laceration is a cut through the skin. You have a laceration that has been closed with a type of skin glue. Home Care Medications: Acetaminophen (Tylenol) or ibuprofen (Motrin, Advil) may be taken for pain, unless another pain medicine was prescribed. NOTE: If you have chronic liver or kidney disease or ever had a stomach ulcer or GI bleeding, talk with your doctor before using these medications. General Care: Keep the wound clean and dry. You may shower or bathe as usual, but do not use soaps, lotions, or ointments on the wound area. Do not scrub the wound. After bathing, pat the wound dry with a soft towel. If a bandage was applied and it becomes wet or dirty, replace it. Otherwise, change the bandage every 24 hours. Do not scratch, rub, or pick at the film. Do not place tape directly over the film. Do not apply liquids (such as peroxide), ointments, or creams to the wound while the film is in place. Most skin wounds heal without problems. However, an infection sometimes occurs despite proper treatment. Therefore, watch for the signs of infection listed below. Follow Up as directed by the doctor or our staff. The skin glue film will fall off naturally in 5 to 10 days. Get Prompt Medical Attention if any of the following occur: Signs of infection: Fever of 100.4F (38C) or higher, or as directed by your healthcare provider Increasing pain in the wound Increasing redness or swelling Pus coming from the wound Wound bleeds more than a small amount or bleeding doesnt stop Wound edges come apart You feel numbness or weakness in the wound area that doesnt go away You have been given the following additional information: Laceration, Extremity (Skin Glue) (Electronically signed by Karie Winslow P.A.-C 12/03/2016 21:03)
--- NOTE | 2016-12-03 21:12 | ED MAR SUMMARY ---
..... Medication Administration Record [facility] [address] [place] [address] Patient: KERRI OKEEFE Visit ID: [id number] 51y, M Weight: 104.3 kg Height/Length: 66 in BMI: 37.1 ALLERGIES: ELISABETH Inhibitors, LIsinopril
--- NOTE | 2016-12-03 21:12 | ED MED RECONCILIATION SUMMARY ---
Patient: KERRI OKEEFE Medication Reconciliation Report [facility] VisitID: [id number] [address] [place] [address] 51y, M Registration Date/Time: 12/03/2016 Weight: 104.3 kg Height/Length: 66 in. BMI: 37.1 ALLERGIES: ELISABETH Inhibitors, LIsinopril The patient's Home Medications are listed below: THE FOLLOWING MEDICATIONS NEED TO BE RECONCILED: Amitriptyline HCl Oral 25 mg, daily AmLODIPine Besylate Oral 10 mg, daily Atorvastatin Calcium Oral (20 mg) 1 tablet, daily Hydrochlorothiazide Oral 25 mg, daily Losartan Potassium Oral 25 mg, 2x a day The source(s) of the original Home Medication information: patient The following Medications were given to the patient in the Emergency Department: None. The following Medications were prescribed to the patient: Take OTC medications according to label instructions. Available over the counter. -- Karie Winslow, P.A.-C Acetaminophen (available over the counter): take according to label instructions. -- Karie Winslow, P.A.-C Motrin (available over the counter): take according to label instructions. -- Karie Winslow, P.A.-C
--- NOTE | 2016-12-03 21:12 | ED MAR SUMMARY ---
..... Medication Administration Record [facility] [address] [place] [address] Patient: KERRI OKEEFE Visit ID: [id number] 51y, M Weight: 104.3 kg Height/Length: 66 in BMI: 37.1 ALLERGIES: ELISABETH Inhibitors, LIsinopril
== END 2016-12-03 21:08 | disposition home or self-care (01) ==
LOC: ED SRH 19:59
DX: S61.012A Laceration without foreign body of left thumb without damage to nail, initial encounter (principal); W25.XXXA Contact with sharp glass, initial encounter; Y93.89 Activity, other specified; Y99.9 Unspecified external cause status; Y92.009 Unspecified place in unspecified non-institutional (private) residence as the place of occurrence of the external cause